=== PATIENT | male | born 1955 | race Caucasian/White ===

== ENCOUNTER 2019-12-13 12:53 | Inpatient (IN) | payer MEDICAID ==
[~2019-12-13] VITALS: Ht 172.7 cm; Wt 70.4 kg
--- NOTE | 2019-12-13 13:30 | NUR ---
PT TO ROOM 26 PER WHEELCHAIR. PT IS AWAKE A/O X3, BUT VERY SLOW TO RESPOND. PT APPEARS TO BE HAVING A HARD TIME EXPLAINING HIMSELF TO RN AND PA. PT MOVES ALL EXTREMITIES, BUT HAS GENERALIZES WEAKNESS WHEN UP FOR AMBULATION TEST. PT PASSES THE BEDSIDE SWALLOW TEST. PT PLACED ON MONITOR, PUT IN GOWN, GIVEN WARM BLANKETS AND CALL LIGHT WITH INSTRUCTIONS.
--- NOTE | 2019-12-13 14:06 | NUR ---
SPOKE WITH DAUGHTER CARL ON PHONE. DAUGHTER IS CONCERNED FOR HER FATHER DUE TO HIM SLEEPING ALL THE TIME AND JUST NOT COGNITIVELY AWARE HE WAS BEFORE HE FELL AND HURT HIS BACK. PATIENT TOLD HIS DAUGHTER THAT HE WAS GOING TO IN 2 HOURS, BUT COULD NOT ELABORATE. PT HAS NO THOUGHTS OF SI OR HI. PHONE NUMBER WRITTEN DOWN TO CALL DAUGHTER AFTER TEST RESULTS COME BACK.
[2019-12-13 14:15] LABS: RAPID INFLUENZA A Negative (Negative); RAPID INFLUENZA B Negative (Negative)
--- NOTE | 2019-12-13 14:39 | NUR ---
BREAK RN NOTE: PT RESTING ON GURNEY, A&O, RESPS EVEN AND UNLABORED. BP AND SPO2 MONITORS IN PLACE. CALL LIGHT IN REACH. PT INSTRUCTED TO PROVIDE CLEAN CATCH UA, URINAL/SUPPLIES AT BEDSIDE. MICA PATCHER AT BEDSIDE FOR DRAW. AWAITING LAB/CXR/CT RESULTS AND DISPO .
[2019-12-13 14:50] LABS: MEAN CORPUSCULAR HEMOGLOBIN 28.9 pg (27.5-34.5); MEAN CORPUSCULAR HGB CONC 32.8 g/dL (33.2-36.2); MEAN CORPUSCULAR VOLUME 87.9 fL (81-97); MEAN PLATELET VOLUME 7.6 fL (7.4-10.4); PLATELET COUNT 233 x10^3/uL (130-400); RED BLOOD COUNT 4.76 x10^6/uL (4.38-5.82); RED CELL DISTRIBUTION WIDTH 14.9 % (9.4-14.8)
--- NOTE | 2019-12-13 14:57 | NUR ---
URINE OBTAINED AND SENT FOR TESTING. PT VERY DROWSY, SLEEPING UPON RN ENTERING ROOM. PT DOES AWAKE AND RESPOND APPROPRIATELY. WILL CONTINUE TO MONITOR.
[2019-12-13 15:01] LABS: ALANINE AMINOTRANSFERASE 61 U/L (12-78); ANION GAP 8 mmol/L (5-15); CALCIUM 8.5 mg/dL (8.5-10.1); CHLORIDE 96 mmol/L (98-107); CREATININE 0.69 mg/dL (0.7-1.3)
[2019-12-13 15:06] LABS: ALKALINE PHOSPHATASE 75 U/L (45-117); TOTAL PROTEIN 7.2 g/dL (6.4-8.2)
[2019-12-13 15:09] LABS: TROPONIN I 0.691 ng/mL (0.000-0.045)
[2019-12-13 15:12] LABS: MD YES
[2019-12-13 15:14] LABS: BAND#(MANUAL) 2.38 x10^3/uL; BANDS%(MANUAL) 13 % (0-7); LYMPH#(MANUAL) 0.37 x10^3/uL (1-3.4); LYMPHS% (MANUAL) 2 % (22-44); MONOS#(MANUAL) 0.73 x10^3/uL (0.3-2.7); MONOS% (MANUAL) 4 % (2-9); SEG#(MANUAL) 14.82 x10^3/uL (1.8-6.8); SEGS% (MANUAL) 81 % (42-75)
[2019-12-13 15:15] LABS: <PLATELET ESTIMATE> ADEQUATE; <PLT MORPHOLOGY> NORMAL PLT MORPH; <RBC MORPHOLOGY> NORMAL
[2019-12-13 15:22] LABS: MICROSCOPIC INDICATED
[2019-12-13 15:23] LABS: CULTURE INDICATED? YES
--- NOTE | 2019-12-13 15:30 | NUR ---
PT RESTING ON GURNEY IN ROOM, SLEEPING.
--- NOTE | 2019-12-13 16:07 | NUR ---
TASK RN: RN OBTAINED PT'S DAUGHTER'S NUMBER. RN WROTE IT DOWN AND GAVE IT TO PRIMARY RN.
[2019-12-13] MEDS ORDERED: SODIUM CHLORIDE 0.9% 1,000 ML IV ONE (16:19)
[2019-12-13] MEDS ORDERED: CEFTRIAXONE PMX 1GM/50ML 50 ML IV ONE (16:30)
[2019-12-13] MEDS ORDERED: ASPIRIN 81 MG TABLET CHEW PO ONE (16:30)
[2019-12-13] MEDS ORDERED: CEFTRIAXONE PMX 1GM/50ML 50 ML ONE (16:45)
[2019-12-13] MEDS ORDERED: ASPIRIN 81 MG TABLET CHEW ONE (16:45)
--- NOTE | 2019-12-13 17:05 | NUR ---
IV PLACED AND FLUIDS STARTED, ANTIBIOTIC GIVEN. PT GIVEN 2 BABY ASA, AND EKG DONE. PT DENIES NEED FOR PAIN MEDICATIONS. WILL CONTINUE TO MONITOR. MD CALLED DAUGHTER TO EXPLAIN FATHER'S CONDITION.
[2019-12-13] MEDS: SODIUM CHLORIDE 0.9% 1,000 ML IV SCH (17:19)
[2019-12-13] MEDS ORDERED: KETOROLAC 30 MG/1 ML IV PRN (17:30)
[2019-12-13] MEDS ORDERED: ONDANSETRON 2MG/ML, 2ML IVPush PRN (17:30)
[2019-12-13] MEDS ORDERED: LORazepam 0.5MG TABLET PO PRN (17:30)
[2019-12-13] MEDS ORDERED: LORazepam 2 MG/ML, 1ML IV PRN ×2 (17:30)
[2019-12-13 18:15] LABS: FREE T4 (FREE THYROXINE) 1.48 ng/dL (0.76-1.46)
--- NOTE | 2019-12-13 18:15 | NUR ---
PT SLEEPING, CONTINUE TO MONITOR WHILE AWAITING ROOM.
[2019-12-13 18:36] LABS: HCT (SEDRATE) 41.9 % (39.2-51.8)
--- NOTE | 2019-12-13 19:00 | NUR ---
REPORT TO FLOOR RN. PT TRANSFERED TO FLOOR VIA JIMBO, DIRECTOR [employer] AND TECH. PT STABLE UPON TRANSFER.
[2019-12-13 19:25] VITALS: BP 97/66
[2019-12-13] MEDS ORDERED: Norco PO (21:47)
[2019-12-13] MEDS: ENOXAPARIN 40 MG/0.4 ML SQ SCH (21:49)
[2019-12-13] MEDS: FLUCONAZOLE 400 MG/200 ML 200 ML IV SCH (21:49)
[2019-12-13] MEDS: ATORVASTATIN 40 MG TABLET PO SCH (21:49)
[2019-12-13] MEDS: NICOTINE 7 MG/24 HR PATCH.TD24 TD SCH (21:49)
[2019-12-13 23:01] LABS: TROPONIN I 0.541 ng/mL (0.000-0.045)
[2019-12-14 02:12] VITALS: BP 102/68
[2019-12-14] MEDS: ACETAMINOPHEN 325 MG TABLET PO PRN ×2 (03:58→17:56)
[2019-12-14] MEDS: ASPIRIN 81 MG TABLET EC PO SCH (05:50)
[2019-12-14 06:46] LABS: BASOPHILS # (AUTO) 0.01 x10^3/uL (0-0.1); BASOPHILS % (AUTO) 0 % (0-1); EOSINOPHILS # (AUTO) 0.03 x10^3/uL (0-0.4); EOSINOPHILS % (AUTO) 0 % (1-7); LYMPHOCYTES # (AUTO) 1.43 x10^3/uL (1-3.4); LYMPHOCYTES % (AUTO) 11 % (22-44); MD NO; MEAN CORPUSCULAR HEMOGLOBIN 28.9 pg (27.5-34.5); MEAN CORPUSCULAR HGB CONC 32.5 g/dL (33.2-36.2); MEAN CORPUSCULAR VOLUME 88.7 fL (81-97); MEAN PLATELET VOLUME 8.3 fL (7.4-10.4); MONOCYTES # (AUTO) 0.34 x10^3/uL (0.2-0.8); MONOCYTES % (AUTO) 3 % (2-9); NEUTROPHILS # (AUTO) 11.35 x10^3/uL (1.8-6.8); NEUTROPHILS % (AUTO) 86 % (42-75); PLATELET COUNT 225 x10^3/uL (130-400); RED BLOOD COUNT 4.63 x10^6/uL (4.38-5.82); RED CELL DISTRIBUTION WIDTH 15.4 % (9.4-14.8)
[2019-12-14 06:56] LABS: ALBUMIN 1.9 g/dL (3.4-5.0); ANION GAP 6 mmol/L (5-15); CALCIUM 8.1 mg/dL (8.5-10.1); CHLORIDE 100 mmol/L (98-107)
[2019-12-14 07:02] LABS: ALANINE AMINOTRANSFERASE 62 U/L (12-78); ALKALINE PHOSPHATASE 70 U/L (45-117); BILIRUBIN,TOTAL 0.9 mg/dL (0.2-1.0); CHOL/HDL RATIO 8.6; CHOLESTEROL, TOTAL 86 mg/dL (140-239); CREATININE 0.67 mg/dL (0.7-1.3); HDL CHOL % 12 % (26-37); HDL CHOLESTEROL (DIRECT) 10 mg/dL (40-60); LDL CHOLESTEROL,CALCULATED 55 mg/dL (54-169); LDL/HDL RATIO 5.5 (0.5-3.0); TOTAL PROTEIN 6.8 g/dL (6.4-8.2); TRIGLYCERIDES 103 mg/dL (50-200); TROPONIN I 0.455 ng/mL (0.000-0.045); VLDL CHOLESTEROL 21 mg/dL (0-25)
[2019-12-14 07:40] VITALS: BP 108/49
[2019-12-14] MEDS ORDERED: THIAMINE 200 MG in DEXTROSE 5% 50 ML IVPB SCH (09:00)
[2019-12-14] MEDS: SENNA/DOCUSATE TABLET PO SCH (09:00)
[2019-12-14] MEDS: MULTIVITAMINS/MINERALS TABLET PO SCH (09:00)
[2019-12-14] MEDS ORDERED: CEFTRIAXONE PMX 1GM/50ML 50 ML IV SCH (09:00)
[2019-12-14] MEDS: THIAMINE 100MG TABLET PO SCH (11:05)
[2019-12-14] MEDS: SODIUM CHLORIDE 0.9% 1,000 ML IV SCH (12:08)
[2019-12-14 12:59] VITALS: BP 107/46
[2019-12-14] MEDS ORDERED: VANCOMYCIN PER PHARMACY MC PRN (13:00)
[2019-12-14] MEDS ORDERED: PHARMACOKINETIC MONITORING MC PRN (13:30)
[2019-12-14] MEDS ORDERED: CEFTRIAXONE PMX 2GM/50ML 50 ML IV SCH (14:00)
[2019-12-14] MEDS: VANCOMYCIN 1,400 MG in SODIUM CHLORIDE 0.9% 250 ML IV SCH (15:04)
[2019-12-14] MEDS: LORazepam 1MG TABLET PO PRN ×2 (17:50→22:11)
[2019-12-14 20:00] VITALS: BP 98/50
[2019-12-14] MEDS: FLUCONAZOLE 400 MG/200 ML 200 ML IV SCH (20:15)
[2019-12-14] MEDS: ATORVASTATIN 40 MG TABLET PO SCH (20:15)
[2019-12-14] MEDS: ENOXAPARIN 40 MG/0.4 ML SQ SCH (20:15)
[2019-12-14] MEDS: NICOTINE 7 MG/24 HR PATCH.TD24 TD SCH (20:43)
[2019-12-15 02:00] VITALS: BP 104/50
[2019-12-15 05:51] LABS: MEAN CORPUSCULAR HEMOGLOBIN 29.3 pg (27.5-34.5); MEAN CORPUSCULAR HGB CONC 32.6 g/dL (33.2-36.2); MEAN CORPUSCULAR VOLUME 90.1 fL (81-97); MEAN PLATELET VOLUME 8.1 fL (7.4-10.4); PLATELET COUNT 193 x10^3/uL (130-400); RED BLOOD COUNT 4.94 x10^6/uL (4.38-5.82)
[2019-12-15 06:03] LABS: ALBUMIN 1.7 g/dL (3.4-5.0); ANION GAP 5 mmol/L (5-15); CALCIUM 8.7 mg/dL (8.5-10.1); CHLORIDE 105 mmol/L (98-107)
[2019-12-15] MEDS: ASPIRIN 81 MG TABLET EC PO SCH (06:06)
[2019-12-15 06:08] LABS: ALANINE AMINOTRANSFERASE 55 U/L (12-78); ALKALINE PHOSPHATASE 68 U/L (45-117); BILIRUBIN,TOTAL 0.9 mg/dL (0.2-1.0); CREATININE 0.75 mg/dL (0.7-1.3); TOTAL PROTEIN 6.5 g/dL (6.4-8.2)
[2019-12-15 06:11] LABS: BASOPHILS # (AUTO) 0.01 x10^3/uL (0-0.1); BASOPHILS % (AUTO) 0 % (0-1); EOSINOPHILS # (AUTO) 0.04 x10^3/uL (0-0.4); EOSINOPHILS % (AUTO) 0 % (1-7); LYMPHOCYTES # (AUTO) 2.26 x10^3/uL (1-3.4); LYMPHOCYTES % (AUTO) 16 % (22-44); MD SCAN; MONOCYTES # (AUTO) 0.38 x10^3/uL (0.2-0.8); MONOCYTES % (AUTO) 3 % (2-9); NEUTROPHILS # (AUTO) 11.51 x10^3/uL (1.8-6.8); NEUTROPHILS % (AUTO) 81 % (42-75)
[2019-12-15 07:28] VITALS: BP 103/49
[2019-12-15] MEDS: VANCOMYCIN 1,400 MG in SODIUM CHLORIDE 0.9% 250 ML IV SCH (08:29)
[2019-12-15] MEDS: MULTIVITAMINS/MINERALS TABLET PO SCH (08:29)
[2019-12-15] MEDS: THIAMINE 100MG TABLET PO SCH (08:29)
[2019-12-15] MEDS: SENNA/DOCUSATE TABLET PO SCH (08:29)
[2019-12-15 12:49] VITALS: BP 145/69
[2019-12-15 13:51] LABS: AMPHETAMINE SCREEN, URINE Negative (Negative); BARBITURATE SCREEN, URINE Negative (Negative); BENZODIAZEPINE SCREEN, URINE Negative (Negative); CANNABINOID SCREEN, URINE Negative (Negative); COCAINE SCREEN, URINE Negative (Negative); METHADONE SCREEN, URINE Negative (Negative); OPIATE SCREEN, URINE Negative (Negative)
[2019-12-15] MEDS ORDERED: OMNIPAQUE 350 MG/ML, 100ML BOTTLE ONE (14:47)
[2019-12-15 16:19] LABS: HCT (SEDRATE) 44.4 % (39.2-51.8)
[2019-12-15 16:31] LABS: TROPONIN I 0.376 ng/mL (0.000-0.045)
[2019-12-15 17:14] VITALS: BP 119/55
[2019-12-15 20:17] VITALS: BP 110/54
[2019-12-15] MEDS: ENOXAPARIN 40 MG/0.4 ML SQ SCH (21:24)
[2019-12-15] MEDS: ATORVASTATIN 40 MG TABLET PO SCH (21:24)
[2019-12-15] MEDS: NICOTINE 7 MG/24 HR PATCH.TD24 TD SCH (21:24)
[2019-12-15 21:36] LABS: TROPONIN I 0.622 ng/mL (0.000-0.045)
[2019-12-15] MEDS ORDERED: HEPARIN 5,000 UNITS/ML, 1ML IV PRN (22:30)
[2019-12-15] MEDS ORDERED: HEPARIN 5,000 UNITS/ML, 1ML IV ONE (22:30)
[2019-12-15] MEDS ORDERED: HEPARIN 25,000 UNITS/250ML PMX 250 ML IV PRN (22:30)
[2019-12-16 00:19] VITALS: BP 102/44
[2019-12-16] MEDS: VANCOMYCIN 1,400 MG in SODIUM CHLORIDE 0.9% 250 ML IV SCH (02:36)
[2019-12-16 03:29] LABS: BASOPHILS # (AUTO) 0.03 x10^3/uL (0-0.1); BASOPHILS % (AUTO) 0 % (0-1); EOSINOPHILS # (AUTO) 0.09 x10^3/uL (0-0.4); EOSINOPHILS % (AUTO) 1 % (1-7); LYMPHOCYTES # (AUTO) 3.19 x10^3/uL (1-3.4); LYMPHOCYTES % (AUTO) 23 % (22-44); MD NO; MEAN CORPUSCULAR HGB CONC 32.9 g/dL (33.2-36.2); MEAN PLATELET VOLUME 8.4 fL (7.4-10.4); MONOCYTES # (AUTO) 0.53 x10^3/uL (0.2-0.8); MONOCYTES % (AUTO) 4 % (2-9); NEUTROPHILS % (AUTO) 72 % (42-75); PLATELET COUNT 227 x10^3/uL (130-400); RED BLOOD COUNT 4.53 x10^6/uL (4.38-5.82); RED CELL DISTRIBUTION WIDTH 15.7 % (9.4-14.8)
[2019-12-16 03:34] LABS: ALANINE AMINOTRANSFERASE 44 U/L (12-78); ALBUMIN 1.7 g/dL (3.4-5.0); ANION GAP 5 mmol/L (5-15); CALCIUM 8.1 mg/dL (8.5-10.1); CHLORIDE 102 mmol/L (98-107); CREATININE 0.61 mg/dL (0.7-1.3)
[2019-12-16 03:39] LABS: ALKALINE PHOSPHATASE 70 U/L (45-117); BILIRUBIN,TOTAL 0.8 mg/dL (0.2-1.0); TOTAL PROTEIN 6.3 g/dL (6.4-8.2); TROPONIN I 0.527 ng/mL (0.000-0.045)
[2019-12-16] MEDS: ASPIRIN 81 MG TABLET EC PO SCH (06:35)
[2019-12-16] MEDS ORDERED: FLUCONAZOLE 100 MG TABLET PO SCH (09:00)
== END 2019-12-16 08:15 | disposition left against medical advice (07) | DRG 720 ==
LOC: ED 14:29 → EDIP 16:32 → SUATTDRO 16:50 → 3WST 19:10 → 5SO 12-15 17:55
PROVIDERS: ADMIT Hospitalist; ATTEND Internal Medicine
DX: A41.81 Sepsis due to Enterococcus (principal); J96.01 Acute respiratory failure with hypoxia; I21.4 Non-ST elevation (NSTEMI) myocardial infarction; E43 Unspecified severe protein-calorie malnutrition; G93.40 Encephalopathy, unspecified; E87.1 Hypo-osmolality and hyponatremia; R62.7 Adult failure to thrive; B37.9 Candidiasis, unspecified; R32 Unspecified urinary incontinence; B18.2 Chronic viral hepatitis C; E87.8 Other disorders of electrolyte and fluid balance, not elsewhere classified; F17.210 Nicotine dependence, cigarettes, uncomplicated; M54.9 Dorsalgia, unspecified; F15.10 Other stimulant abuse, uncomplicated; Z20.828 Contact with and (suspected) exposure to other viral communicable diseases; F10.10 Alcohol abuse, uncomplicated; Z20.818 Contact with and (suspected) exposure to other bacterial communicable diseases; Z80.9 Family history of malignant neoplasm, unspecified; Z68.23 Body mass index [BMI] 23.0-23.9, adult; Z53.29 Procedure and treatment not carried out because of patient's decision for other reasons
CPT/HCPCS: 36415; 36600; 70450; 71045; 71275; 74177; 80053; 80061; 80074; 80307; 81001; 82803; 83605; 83735; 84100; 84439; 84443; 84484; 85025; 85520; 85651; 86140; 87040; 87077; 87081; 87086; 87186; 87400; 87521; 87522; 87806; 87880; 93005; 99283; G0378; J0696; J1450; J1644; J1650; J1885; J3370; Q9967; G0475; J2060; J7030; J7050; U0001